=== PATIENT | female | born 1990 | race Caucasian/White ===

== ENCOUNTER → 2016-05-28 | Outpatient (REF) | payer OTHER ==
[2016-05-28 20:47] LABS: FREE T4 1.16 NG/DL (0.76-1.46)
== END ==
LOC: M SFHCLERA 15:18
PROVIDERS: ATTEND Family Medicine
DX: F39 Unspecified mood [affective] disorder (principal)

== ENCOUNTER → 2016-06-25 | Outpatient (CLI) | payer OTHER ==
[2016-06-25 18:21] LABS: HCG, SERUM QUANTITATIVE < 1.0 MIU/ML
[2016-06-25 18:23] LABS: LUTEINIZING HORMONE 13.4 mIU/mL; PROLACTIN 8.5 NG/ML
[2016-06-25 18:28] LABS: BASO % 0.9 % (0.0-1.0); EOS # 0.4 K/mm3 (0.0-0.50); EOS % 6.7 % (0.0-3.0); LARGE UNSTAINED CELL # 0.2 K/mm3 (0.0-0.4); LARGE UNSTAINED CELL % 2.7 % (0.0-4.0); LYMPH # 2.3 K/mm3 (1.5-6.5); MEAN CORPUSCULAR HEMOGLOBIN 30.4 pg (27.0-33.0); MEAN CORPUSCULAR HGB CONC 34.2 g/dl (32.0-36.5); MONO # 0.4 K/mm3 (0.0-0.8); MONO % 6.1 % (0.0-5.0); NEUTROPHILS # 2.5 K/mm3 (1.8-7.7); NEUTROPHILS % 44.5 % (36.0-66.0); PLATELET COUNT, AUTOMATED 205 k/mm3 (150-450); RED CELL DISTRIBUTION WIDTH 12.1 % (11.5-14.5)
[2016-06-28 06:42] LABS: WHITE BLOOD COUNT 5.6 K/mm3 (4.0-10.0)
[2016-06-28 06:43] LABS: FOLLICLE STIMULATING HORMONE 8.8 mIU/mL
== END ==
LOC: M LRY 13:46
PROVIDERS: ATTEND Obstetrics & Gynecology
DX: N91.5 Oligomenorrhea, unspecified (principal)

== ENCOUNTER → 2023-02-07 | Outpatient (REF) | payer OTHER | LOC: M SFHCWAGY 15:23 | PROVIDERS: ATTEND Nurse Practitioner Family | DX: Z12.4 Encounter for screening for malignant neoplasm of cervix (principal); Z01.419 Encounter for gynecological examination (general) (routine) without abnormal findings; Z77.9 Other contact with and (suspected) exposures hazardous to health ==